=== PATIENT | female | born 1960 | race Caucasian/White ===

== ENCOUNTER 2018-09-24 15:03 | Outpatient (REF) | payer BC, SELFPAY ==
[2018-09-24 18:51] LABS: HCT 38.1 % (36.0-46.0); HGB 12.8 g/dL (12.0-15.5); Mean Corp. HGB Concentration 33.6 g/dL (32.0-36.0); Mean Corpuscular Hemoglobin 33.2 pg (27.0-33.0); Mean Corpuscular Volume 98.7 fL (80-95); Mean Platelet Volume 10.1 fL (8.0-11.0); Platelet Count 325 x1000/uL (130-400); RBC 3.86 m/cumm (4.00-5.20); RBC Distribution Width 14.2 % (11.7-14.6); White Blood Cell Count 8.35 k/cumm (4.4-10.8)
[2018-09-24 18:59] LABS: Anion Gap 9.1 mmol/L (3-11); BUN 19 mg/dL (7-18); CO2 29.9 mmol/L (21.0-32.0); CREATININE 0.92 mg/dL (0.55-1.02); Calcium 9.8 mg/dL (8.5-10.1); Chloride 102 mmol/L (98-107); Glucose 83 mg/dL (70-100); Potassium 4.2 mmol/L (3.5-5.1); Sodium 141 mmol/L (136-145)
== END 2018-09-24 15:23 ==
LOC: NCHCN 15:03
PROVIDERS: PCP Family Medicine; Visit Provider Family Medicine
DX: Z79.1 Long term (current) use of non-steroidal anti-inflammatories (NSAID) (principal)
CPT/HCPCS: 80048; 85027

== ENCOUNTER 2018-11-14 08:40 | Outpatient (CLI) | payer BC, SELFPAY ==
--- NOTE | 2018-11-14 08:58 | DI.RAD_ITS ---
SYMPTOMS/DIAGNOSIS: LLE NUMBNESS AND PAIN, LOW BACK PAIN LUMBAR SPINE: The vertebral bodies are intact. Disc space narrowing is noted at L 5 - S 1. There is discogenic sclerosis. Moderately severe facet joint DJD is identified at this level. There is no evidence of spondylolysis or spondylolisthesis. The pedicle, spinous and transverse processes are well maintained. The sacrum and sacroiliac joints are intact. SUMMARY: Findings consistent with DJD at L 5 - S 1 where there is discogenic sclerosis and facet joint DJD. There is no evidence of spondylolysis or spondylolisthesis.
== END 2018-11-14 09:00 ==
PROVIDERS: PCP Family Medicine; Visit Provider Student in an Organized Health Care Education/Training Program
DX: M54.16 Radiculopathy, lumbar region (principal); R20.2 Paresthesia of skin; M51.17 Intervertebral disc disorders with radiculopathy, lumbosacral region; M47.27 Other spondylosis with radiculopathy, lumbosacral region
CPT/HCPCS: 72110

== ENCOUNTER 2018-11-26 01:11 | Outpatient (CLI) | payer BC, SELFPAY ==
--- NOTE | 2018-11-26 07:39 | DI.MRI_ITS ---
SYMPTOM/DIAGNOSIS: LT LOW BACK PAIN, ? LT INVOLVEMENT,M54.5, LT HIP AND LEG PAIN AND NUMBNESS LUMBOSACRAL SPINE MRI: MRI examination of the lumbosacral spine was performed according to the usual protocol. There are mild peridiscal vertebral signal changes at L 5-S 1 consistent with disc degeneration and there is loss of height of the L 5-S 1 intervertebral disc. Otherwise the intervertebral discs appear fairly well maintained. There is a mild broad based, right paracentral disc herniation at L 5-S 1 without direct evidence of neural impingement. There are very prominent changes of facet hypertrophy at L 4-5 and to a lesser degree at L 5-S 1. Left facet hypertrophy most prominent at L 4-5. There is a rounded mass-like finding seen in the spinal canal adjacent to the hypertrophied facet joint at L 4-5 on the left which measures about 10 by 7 mm. in diameter and which narrows the left lateral recess and displaces spinal canal contents to the right. This is predominantly of high signal on T 2 weighted imaging with low signal rim. Contents are low signal on T 1 weighted imaging. Mild enhancement of the rim noted on post contrast examination. The findings as described are consistent with a synovial cyst. No other disc abnormality is identified in the lumbar region. No additional enhancing lesion seen. Conus medullaris appears intact. Bony central canal and neural foramina appear intact. CONCLUSION: 1. Mild broad based right paracentral disc herniation at L 5-S 1 without evidence of neural impingement. 2. Apparent left synovial cyst in the spinal canal at the L 4-5 level, there may be impingement of left L 4 or L 5 nerve roots at this site.
[2018-11-26] MEDS: Normal Saline Flush 10 ML SYR IVP (08:54)
[2018-11-26] MEDS: Gadoterate meglumine 20 ML VIAL 13 ML IVP (08:54)
== END 2018-11-26 01:31 ==
PROVIDERS: PCP Family Medicine; Visit Provider Student in an Organized Health Care Education/Training Program
DX: M54.5 Low back pain (principal); M25.552 Pain in left hip; M79.605 Pain in left leg; R20.0 Anesthesia of skin; M51.17 Intervertebral disc disorders with radiculopathy, lumbosacral region; M71.38 Other bursal cyst, other site
CPT/HCPCS: 72158

== ENCOUNTER 2019-04-08 07:17 | Day surgery (SDC) | payer BC, SELFPAY ==
--- NOTE | 2019-04-08 06:32 | COLE_ITS ---
Date of service: 04/08/19 Time of Service: 08:12 Colonoscopy Report Date of procedure: 04/08/19 Pre-op diagnosis general: Colon Cancer Screening Post-op diagnosis procedure note: same Procedure: Colonoscopy Surgeon: Angelia Owens Anesthesia proc note operative: other (General/ ASA 2/Lázaro Henley, MARIA TERESA) Estimated blood loss (mL): 0 Pathology: none sent Complications: None Disposition: same day Indications: Mrs. Gibson is a pleasant 58 year old female seen in the office for a screening colonoscopy. Risks, benefits and complications have been reviewed. Complications include but are not limited to bleeding, pain, per foration, missed small lesion/polyp, sore throat, aspiration and adverse reaction to the medications. Questions were entertained and answered to their satisfaction and they wished to proceed. No guarantees were given or implied. Prep: Miralax/Dulcolax Procedure Start Time: 08:12 Procedure End Time: 08:45 Retraction Time: 20 minutes Findings: Mild so-diverticulosis Procedure Description: After informed consent was obtained the patient was taken to the procedure room and placed in a left decubitous position. Monitors were applied and a time out was done. The patients name, date of , procedure, al lergies to medications and metal in their body was reviewed. The patient was then sedated. Once sedated and comfortable a rectal exam was done. External exam was normal. Internal exam revealed a normal sphincter tone and no palpable masses. The scope was then introduced and retro-flexed. No internal hemorrhoids, polyps or masses were identified. The scope was then advanced to the cecum without difficulty. The TI and appendiceal orifice were identified. The prep was good. The scope was then slowly retracted over 20 minutes back into the rectum. There were no polyps. There was mild so-diverticulosis noted. The scope was removed and the patient was woken up and taken back to Same day surgery in stable condition. The patient tolerated the procedure well and there were no immediate complications. Follow up: The patient should follow up in 10 years unless they develop changes in bowel habits or other new gastrointestinal complaints.
--- NOTE | 2019-04-08 06:34 | W.PM.DSUDISC ---
Discharge Plan Disposition Patient Disposition: HOME Condition: Good Discharge Details Reason For Visit: Colon Cancer Screening Attending Provider: Angelia Owens Primary Care Provider: Ruth Grayson Home Meds and New Rx's Prescriptions: Continued fluoxetine [Prozac] 10 MG capsule 10 mg PO DAILY RF: 0 diclofenac-misoprostol 1 EACH tablet,IR,delayed rel,biphasic 1 ea PO DAILY PRNRF: 0 Discontinued polyethylene glycol 3350 17 gram/dose powder 238 g PO ONCE Qty: 238 RF: 0 bisacodyl [Dulcolax (bisacodyl)] 5 mg tablet,delayed release (DR/EC) 5 mg PO ONCE Qty: 4 RF: 0 Discharge Instructions Instructions: Colonoscopy (DC), Diverticulosis (DC) Additional Instructions: Findings:Mild diverticulosis Follow up: 10 years Please call if you develop: fevers >101.5 Nausea or Vomiting Abdominal pain that is not transient DAY SURGERY UNIT POST ENDOSCOPY INSTRUCTIONS 1. Because there will be medication in your system for the next 24 hours, you may feel a little sleepy. Your coordination will be affected. Therefore: a. Do not drive or operate dangerous equipment for 24 hours. b. Do not drink alcohol beverages for 24 hours (not even beer). c. Plan to go home and rest for the day. 2. Generally there are no restrictions on your activity after a day or so has gone by, but you may feel a bit fatigued for a few days. 3 After you arrive home you may have a light meal and return to a normal diet as you can tolerate it without feeling sick to your stomach. 4. After surgery, you may feel pain or discomfort. This should be only transient, but if it persists please contact your doctor. 5. If there are any questions regarding the findings of your procedure, please feel free to contact your doctor. 6. If you are unable to contact your doctor with a problem, contact the hospital at [phone]. 7. Continue all your regular medications unless directed otherwise. I understand the above instructions and have no questions. Signature of Patient or Responsible Adult Escort Date/Time Name of Responsible Adult Escort Signature of Nurse Date/Time Activity:: Activity as Tolerated Diet:: High Fiber diet Discharge Orders Discharge Orders: Discharge Order (Routine); Ordered 04/08/19 Ordered By: Angelia Owens DS: Diagnosis Discharge Diagnosis (1) S/P colonoscopy: Status: Acute (2) Diverticulosis: Status: Acute
[2019-04-08 07:39] VITALS: BP 97/63; PULSE 66; RESP 16; TEMP 36.3; O2SAT 100
[2019-04-08] MEDS: Lactated Ringers 1,000 ML 80 ML IV (08:03)
[2019-04-08 09:08] VITALS: BP 117/59; PULSE 62; RESP 15; TEMP 36.1; O2SAT 100
== END 2019-04-08 09:17 | disposition home or self-care (01) ==
LOC: SUR 07:18
PROVIDERS: PCP Family Medicine; Visit Provider Surgery
PROC: 0DJD8ZZ Inspection of Lower Intestinal Tract, Via Natural or Artificial Opening Endoscopic (ICD-10-PCS; CPT 45378; principal; 2019-04-08 08:15)
DX: Z12.11 Encounter for screening for malignant neoplasm of colon (principal); K57.30 Diverticulosis of large intestine without perforation or abscess without bleeding
CPT/HCPCS: 45378

== ENCOUNTER 2019-09-12 09:30 | Outpatient (CLI) | payer BC, SELFPAY ==
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
--- NOTE | 2019-09-12 08:45 | DI.RAD_ITS ---
EXAM: XR STANDING ALIGNMENT INDICATION: PAIN. COMPARISON: No exams were available for comparison TECHNIQUE: 2D digital imaging was performed. FINDINGS: The hip joint spaces are well maintained. There is no significant leg length discrepancy at the leve l pf the femoral heads. Femoral tibial joint spaces are well maintained. Chondrocalcinosis and andreina articular spurring is noted bilaterally. There is some valgus angulation at the left knee. The ankle joint spaces are well maintained. IMPRESSION: Degenerative changes of both knees. No significant leg length discrepancy. DATA REPOSITORY: RADIATION DOSE DELIVERED:
== END 2019-09-12 09:50 ==
PROVIDERS: PCP Family Medicine; Visit Provider Student in an Organized Health Care Education/Training Program
DX: M25.562 Pain in left knee; M17.0 Bilateral primary osteoarthritis of knee; M23.42 Loose body in knee, left knee
CPT/HCPCS: 73562; 77073

== ENCOUNTER 2019-12-12 02:06 | Outpatient (CLI) | payer BC, SELFPAY ==
--- NOTE | 2019-12-12 16:18 | DI.MAMMO_ITS ---
EXAM: MG MAMMO SCREENING CLINICAL HISTORY: SCREENING, Z12.31 TECHNIQUE: Bilateral full field digital CC and MLO mammographic images were obtained with 3D tomosyn thesis and utilizing computer aided detection (CAD). COMPARISON: Available for comparison. FINDINGS: Masses/Architectural Distortion: None seen. Microcalcifications: No suspicious pleomorphic-type are seen. Skin Thickening/Nipple Retraction: None. IMPRESSION: 1. No significant interval change with no specific features of malignancy noted. 2. Unless there is more urgent need, screening mammography is recommended, as per [place] guidelines. BI-RADS Category 1 - Negative Breast Density - Category B - Scattered areas of fibroglandular density A negative radiographic report should not delay biopsy if a dominant or clinically suspicious mass is present. Up to ten percent of cancers are not identified on mammography. A negative report may reinforce clinical impression. Adenosis and dense breasts may obscure an underlying neoplasm. False positive reports average 6 to 10%. Patient will receive a letter notifying them of these results.
== END 2019-12-12 02:26 ==
PROVIDERS: PCP Family Medicine; Visit Provider Family Medicine
DX: Z12.31 Encounter for screening mammogram for malignant neoplasm of breast (principal)
CPT/HCPCS: 77063; 77067

== ENCOUNTER 2020-05-18 14:20 | Outpatient (REF) | payer BC, SELFPAY ==
[2020-05-22 14:36] LABS: Patient Race White; SARS-CoV-2 RNA Undetected (Undetected); SARS-CoV-2 Specimen Source Nasal
== END 2020-05-18 14:40 ==
LOC: NCHCN 14:20
PROVIDERS: PCP Family Medicine; Visit Provider Nurse Practitioner Family
DX: R05 Cough (principal)
CPT/HCPCS: U0003

== ENCOUNTER 2021-05-02 20:14 | Emergency (ER) | payer BC, SELFPAY ==
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
--- NOTE | 2021-05-02 20:30 | DI.CT_ITS ---
Exam(s) CT CHEST/ABD/PEL W EXAM: CT CHEST/ABD/PEL W TECHNIQUE: CT examination of the chest, abdomen, and pelvis was performed with bolus infusion of 100 cc of Omnipaque 350. COMPARISON: No exams were available for comparison FINDINGS: There is no evidence of a thoracic vascular injury. The lungs are clear. No pneumothorax or pleural effusion. No mediastinal hematoma. No adenopathy in the chest. Tracheobronchial tree appears intact. The liver, spleen, and pancreas appear normal with an incidental presumed tiny hepatic cyst or angelika ioma.. Gallbladder and bile ducts are normal. Adrenals and kidneys are unremarkable. No evidence of urinary tract injury or obstruction. No abdominal or pelvic vascular injury seen. No abdominal or pelvic adenopathy. No significant abdomi nal wall hernia or hematoma. No evidence of bowel injury. Note is made of Chun rods in the spine at L4 and L5. Note is made nondisplaced fractures of left 7th and 9th ribs. No additional bony injury seen. IMPRESSION: Nondisplaced 7th and 9th left rib fractures. No additional injury seen. RADIATION DOSE DELIVERED: 1,022.94mGy.cm Total DLP 1,022.94mGy.cm Total DLP 15.54mGy CTDIvol DATA REPOSITORY: All CT scans at this facility are submitted to the National Radiology Data Registry (NRDR) Dose Index Registry (DIR) with the [employer] ([employer]). RADIATION OPTIMIZATION: All CT scans at this facility use at least one of these dose optimization te chniques: automated exposure control; mA and/or kV adjustment per patient size (includes targeted exa ms where dose is matched to clinical indication); or iterative reconstruction.
[2021-05-02 20:34] VITALS: BP 118/66; PULSE 68; RESP 18; TEMP 36.6; O2SAT 100
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
[2021-05-02 21:04] LABS: Bilirubin Negative (Negative); Blood Trace-intact (Negative); Clarity Clear (Clear); Glucose Negative (Negative); Ketones Negative (Negative); Leukocyte Esterase Negative (Negative); Nitrite Negative (Negative); Urobilinogen 0.2 EU/dL (Up TO 0.2)
[2021-05-02 21:06] LABS: Abs Immature Grans 0.01 10^3/uL (0.0-0.06); Absolute Basophil Count 0.05 10^3/uL (0.0-0.2); Absolute Eosinophil Count 0.39 10^3/uL (0.0-0.7); Absolute Lymphocyte Count 2.63 10^3/uL (1.2-3.4); Absolute Neutrophil Count 5.01 10^3/uL (1.2-6.7); Basophils % 0.6; Eosinophils % 4.4; HCT 36.9 % (36.0-46.0); HGB 12.2 g/dL (11.2-15.7); Immature Grans % 0.1; Lymphocytes % 29.9; MCH 32.4 pg (27.0-33.0); MCHC 33.1 % (32.0-36.0); MCV 98.1 fL (80-95); MPV 9.6 fL (8.0-11.0); Nucleated RBC 0 %; Platelet Count 306 10^3/uL (130-400); RBC 3.76 10^6/uL (3.93-5.22); RDW 13.2 % (11.7-14.6); RDW-SD 48.3 fL; WBC 8.79 10^3/uL (4.4-10.8)
[2021-05-02 21:12] LABS: Bacteria Negative HPF (Negative); C & S Indicated? No; Casts Negative LPF (Negative); Crystals Negative HPF (Negative); Epithelial Cells Rare HPF (Negative); Mucus Negative (Negative); WBC Negative HPF (0-5)
[2021-05-02] MEDS: ACETAMINOPHEN 1,000 MG/100 ML BTL 400 MG IVPB (21:22)
[2021-05-02 21:24] LABS: ALT 23 U/L (14-59); AST 29 U/L (15-37); Albumin 3.7 g/dL (3.4-5.0); Alkaline Phosphatase 62 U/L (46-116); Anion Gap 6.8 mmol/L (3-11); BUN 14 mg/dL (7-18); Bilirubin, Total 0.2 mg/dL (0.2-1.0); CO2 30.2 mmol/L (21.0-32.0); CREATININE 1.1 mg/dL (0.55-1.02); Chloride 105 mmol/L (98-107); Estimated GFR 50.33 (mL/min/1.73m2); Glucose 88 mg/dL (74-106); Potassium 3.8 mmol/L (3.5-5.1); Sodium 142 mmol/L (136-145)
[2021-05-02] MEDS: Omnipaque 350 MG/ML 100 ML BTL IJ (21:24)
[2021-05-02] MEDS: Normal Saline - Diluent 50 ML VIAL IV (21:25)
[2021-05-02] MEDS: Normal Saline Flush 10 ML SYR IVP (21:25)
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
[2021-05-02] MEDS: Lidocaine 5% Patch 1 PATCH TP (21:57)
[2021-05-02 22:10] VITALS: BP 125/59; PULSE 77; RESP 18; O2SAT 98
== END 2021-05-02 22:16 | disposition home or self-care (01) ==
PROVIDERS: Emergency Provider Student in an Organized Health Care Education/Training Program; PCP Family Medicine
DX: S22.42XA Multiple fractures of ribs, left side, initial encounter for closed fracture (principal); S80.02XA Contusion of left knee, initial encounter; V18.0XXA Pedal cycle driver injured in noncollision transport accident in nontraffic accident, initial encounter; Y93.55 Activity, bike riding; Z96.652 Presence of left artificial knee joint
CPT/HCPCS: 36415; 73562; 74177; 80053; 96374; 99285; 71260; 81003; 81015; 85025; J0131; J3490

== ENCOUNTER 2021-06-18 10:16 | Outpatient (CLI) | payer BC, SELFPAY ==
--- OUTSIDE RECORDS SUMMARY | 2021-06-18 10:21 | XMS_ITS ---
:1960 Author Care Team Providers Name Role Phone DR. ROSA STEIN Primary Care Provider [phone] DR. ROSA STEIN Referring Provider [phone] ROSA STEIN Primary Care Provider [phone] Allergies Code Code System Name Reaction Severity Status Onset NKDA ? Medications Name Status Start Date Stop Date ? ? diclofenac 75 mg-misoprostol 200 mcg tablet,immediate,delaye d release Completed ? 02/24/2020 Take 1 tablet twice a day by oral route. fluoxetine 10 mg tablet Active ? Not avai lable Take 1 tablet every day by oral route. prednisone 10 mg tablet Active ? Not avai lable 40mg PO daily for 3 days then 30mg PO d aily for 3 days then 20mg PO daily for 3 days then 10 mg PO daily for 3 days Problems Name Status Onset Date Source ? Carpal Tunnel Syndrome Active 02/20/2020 ? Dyspareunia Active 02/20/2020 ? Skin Lesion Active 02/20/2020 ? Osteoarthritis Active 02/20/2020 ? Sciatica Active 02/20/2020 ? Plantar Fasciitis Active 02/20/2020 ? Long-term Drug Therapy Active 02/20/2020 ? Pain in Left Knee Active 02/20/2020 ? Procedures Date Name Performed by ? 04/21/2020 XR, [facility] [address] [place] [address] (Work Place) 05/26/2020 XR, Knee, 3 View [facility] [address], [place] [id number] (Work Place) Results Lab Results None recorded. Past Encounters 06/23/2020 Plantar Fasciitis Giuseppe Bone PA: [address] [place] [phone], Ph. 05/26/2020 Plantar Fasciitis; Osteoarthritis of Lef t Knee Joint Giuseppe Bone PA: [address] [place] [address], Ph. 04/21/2020 Pain of Left Heel ALEXANDRIA Hansen: [address] [place] [address], Ph. 02/24/2020 Plantar Fasciitis of Right Foot Venkata Yap: [address] [facility], [place] [address], Ph. Social History Tobacco Smoking Status Never Smoker Vaccine List None recorded. Plan of Care Patient Instructions We talked about treatment options keenan fontana at this point are really anti- inflammatories and casting. She recently had back surgery in December so still needs to stay off NSAIDs for another month or so. We can try some prednisone and see how she does with this. She is willing to try it. We also talked about casting. She is not sure if she will be able to be at work with a cast on. I told her we could cer tainly try the prednisone for a week or so and see how she does. If we do go with the casting we could arrange it so we do it through her Flo break which might give her only a week or 2 that she w ould need to be in the cast while at [facility]. She is going to try the prednisone taper as prescribed. I will hear back from her in a week to let me know how she is doing. If she has any issues with the medication she will stop it and let me know. This note was created using Evalve voice recognition software. It was reviewed for major content. However, there may be multiple small discrepancies and errors due to the voice recognition aspects of the software. In terms of her foot I would contin ue the present course as she is making some strides albeit slow. 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 In terms of the knee I think she is really a candidate for a total knee replacement. She has had multiple steroid injections in the past. She also had a Synvisc injection and developed what sounds like a pseudos eptic reaction from it. She is not interested in undergoing any further injections. She is going to give some consideration to total knee replacement. We did talk about the procedure, and the risks and the benefits very briefly. If she wishes to undergo this procedure here at [facility] she will let us know and I will get her into see Dr. Moss. She is due to quiroga ve a meeting with her principal so she i s going to check with her to see if she is able to get some time off to be able to do this sooner than later. We will see how she does. She will get back to me if there is any questions or concerns. This note was created using Evalve voice recognition software. It was reviewed for major content. However, there may be multiple small discrepancies and errors due to the voice recognition aspects of the software. At this point I fit her with a plan tar fascia strap. She thought it felt good. She had been doing some kinesiotaping but she can hold off on that now while she is using the strap. She is going to [employer] to work on icing with an ice bot tle as well as stretching. She will continue use of the night splint. I will see her back in 4 weeks for review to see how she is doing. She has any issues she will let me know. This note was created using Evalve voice recognition software. It was reviewed for major content. However, there may be multiple small discrepancies and errors due to the voice recognition aspects of the software. Reminders Provider Appointments None recorded. ? ? Lab None recorded. ? ? Referral None recorded. ? ? Procedures None recorded. ? ? Surgeries None recorded. ? ? Imaging None recorded. ? ? Vitals 06/23/2020 10:10AM ACUTE - ESTABLISHED Height 175.26 cm 05/26/2020 04:10PM ORTHO 20 FOLLOW UP Height 175.26 cm 04/21/2020 03:30PM ORTHO 20 NEW PATIENT Height 175.26 cm 02/24/2020 03:45PM NEW PATIENT Height Weight BMI Blood Pressure 175.26 cm 66.68 kg 21.7 kg/m2 110/50 mm[Hg]
--- NOTE | 2021-06-18 10:26 | DI.RAD_ITS ---
Exam(s) XR KNEE RT 3V AP,LAT,DEMETRIUS EXAM: XR KNEE RT 3V AP,LAT,DEMETRIUS CLINICAL HISTORY: RT KNEE PAIN ACUTE, M25.561. TECHNIQUE: 2D digital imaging was performed. COMPARISON: No exams were available for comparison FINDINGS: BONES: No acute fracture is present. No bony destructive lesion is seen. Periarticular spurring. JOINTS: The knee is normally aligned. A small joint effusion is seen. Chondrocalcinosis is noted in t he menisci. Narrowing of the patellofemoral joint. SOFT TISSUE: Normal. IMPRESSION: Degenerative changes and chondrocalcinosis. DATA REPOSITORY: RADIATION DOSE DELIVERED:
== END 2021-06-18 10:36 ==
PROVIDERS: PCP Family Medicine; Visit Provider Nurse Practitioner Family
DX: M25.561 Pain in right knee (principal); M17.11 Unilateral primary osteoarthritis, right knee; M11.261 Other chondrocalcinosis, right knee
CPT/HCPCS: 73562

== ENCOUNTER 2021-06-23 10:41 | Outpatient (REF) | payer BC, SELFPAY ==
[2021-06-23 21:35] LABS: ESR 1 mm/hr (0-30)
[2021-06-23 21:56] LABS: Creatine Kinase 81 U/L (26-192); Uric Acid 3.1 mg/dL (2.6-6.0)
[2021-06-25 10:31] LABS: HIV-1/2 Ag & Ab Screen Negative (Negative)
[2021-06-25 14:19] LABS: ANA Interpretation Positive (Negative); ANA Titer Pattern 1:160 Speckled
== END 2021-06-23 10:42 | disposition home or self-care (01) ==
LOC: LBN 10:41
PROVIDERS: PCP Family Medicine; Visit Provider Family Medicine
DX: R22.41 Localized swelling, mass and lump, right lower limb (principal); M25.561 Pain in right knee; Z00.00 Encounter for general adult medical examination without abnormal findings; Z11.4 Encounter for screening for human immunodeficiency virus [HIV]
CPT/HCPCS: 82550; 85652; 87389; 84550; 86038

== ENCOUNTER 2021-06-25 01:25 | Outpatient (CLI) | payer BC, SELFPAY ==
--- NOTE | 2021-06-25 10:45 | DI.US_ITS ---
Exam(s) US LOWER EXTREMITY VENOUS RT EXAM: US LOWER EXTREMITY VENOUS RT CLINICAL HISTORY: RT KNEE PAIN M25.561 RT LEG SWELLING R22.41 TECHNIQUE: Right lower extremity venous ultrasound performed using grayscale, color-flow, and spectr al Doppler analysis. COMPARISON: No exams were available for comparison FINDINGS: The right common femoral, femoral and popliteal veins demonstrate normal compressibility, augmentatio n, and color Doppler. The posterior tibial veins are patent. The saphenofemoral junction is unremark able. There is no evidence of a Waters cyst. The soft tissues are unremarkable. IMPRESSION: No DVT. DATA REPOSITORY:
[2021-06-29 10:27] LABS: dsDNA Ab, IgG <12.3 IU/mL (<30.0)
== END 2021-06-25 01:45 ==
PROVIDERS: PCP Family Medicine; Visit Provider Family Medicine
DX: R22.41 Localized swelling, mass and lump, right lower limb (principal); M25.561 Pain in right knee; R79.89 Other specified abnormal findings of blood chemistry
CPT/HCPCS: 86225; 93971

== ENCOUNTER 2021-07-07 00:11 | Outpatient (CLI) | payer BC, SELFPAY ==
--- NOTE | 2021-07-07 14:30 | DI.MRI_ITS ---
Exam(s) MR LOWER JOINT RT WO EXAM: MR LOWER JOINT RT WO CLINICAL HISTORY: RT KNEE PAIN M25.561, RT KNEE EFFUSION SWELLING DIFFUSE BRUISING AROUND TECHNIQUE: Multiplanar multisequence MRI of the knee was performed. COMPARISON: Prior x-rays 06/18/2021 reviewed Those x-rays reveal chondrocalcinosis medial lateral compartments. This is a finding which is more evident on plain films and MRI. Usually associated with degenerative changes. FINDINGS: EFFUSION: Prominent joint effusion noted. There is no waters cyst in the popliteal fossa MARROW:No evidence of fracture. There is subarticular edema in the anterior aspect of both femoral c ondyles, as discussed below. There are no significant osseous lesions. PATELLOFEMORAL COMPARTMENT: The quadriceps tendon is intact. The patellar ligament is intact. There is full-thickness thinning of the retropatellar cartilage over both facets and degenerative int raosseous signal in the posterior aspect of the patella including a degenerative cysts in the posteri or lateral aspect of the patella, these measuring approximately 8 by 7 millimeters.There is no intrao sseous signal to suggest recent patellar dislocation. There is a tear in the lateral patellar retina culum. Synovial fluid is seen external to this tear. No high-grade tear of the medial patellar reti naculum. Also no evidence of tear of the medial collateral ligament proper. CRUCIATE LIGAMENTS: The anterior cruciate ligament is intact.The posterior cruciate ligament is intac t. MEDIAL COMPARTMENT/MEDIAL MENISCUS: There is myxoid degeneration signal but there are no through tear s of the medial meniscus evident.The meniscal root is intact.. There is generalized thinning and signal abnormality in the cartilage over the medial femoral condyle . Anteriorly there are multiple tiny subarticular cysts in the anterior weight-bearing surface of th e medial femoral condylealso prominent marginal osteophyte off the outer aspect. MEDIAL COLLATERAL LIGAMENT: Intact LATERAL COMPARTMENT/LATERAL MENISCUS: There is also myxoid degeneration but no evidence of true later al meniscal tear.Prominent signal abnormality seen in the overlying femoral condyle. There is also w hat is either degenerative subarticular cyst or an osteochondral defectin the anterior weight-bearing surface of the lateral femoral condyle. This measures 1 cm AP by 0.7 cm wide by 6 millimeters deep and there is some surrounding edema in the overlying bone. Marginal osteophytes also seen in the lat eral compartment. ILIOTIBIAL BAND: Intact but adjacent lateral patellar retinaculum tear. LATERAL COLLATERAL LIGAMENT COMPLEX: The fibular collateral ligament is intact. The biceps femoris t endon is intact.Popliteus muscle and tendon are intact. IMPRESSION: 1. The main finding here is advanced osteoarthritic degenerative change in all 3 compartments, includ ing cartilage changes, degenerative subarticular cysts and what is either an osteochondral defect or degenerative subarticular cysts in the anterior weight-bearing surface of the lateral femoral condyle . There is also significant cartilage loss in the retropatellar cartilage and degenerative cysts and degenerative signal in the posterior half of the patella. 2. There is a discontinuity-tear in the lateral patellar retinaculum with a gap of 1 cm between the e dges and contain fluid extravasation at this level. Similar findings are not seen in the medial vasquez llar retinaculum. 3. There are no obvious meniscal tears. There is some degenerative myxoid degeneration signal within both menisci but no true tears. There also no cruciate ligament tears. Also no collateral ligament tears. 4. Moderate-large joint effusion. No Waters cyst. No obvious loose intra-articular body. DATA REPOSITORY:
== END 2021-07-07 00:31 ==
PROVIDERS: PCP Family Medicine; Visit Provider Family Medicine
DX: M25.561 Pain in right knee (principal); M25.461 Effusion, right knee; M17.11 Unilateral primary osteoarthritis, right knee; S83.422A Sprain of lateral collateral ligament of left knee, initial encounter; X58.XXXA Exposure to other specified factors, initial encounter
CPT/HCPCS: 73721

== ENCOUNTER 2021-12-09 18:42 | Outpatient (REF) | payer BC, SELFPAY ==
[2021-12-09 12:46] LABS: HCT 38.6 % (36.0-46.0); HGB 12.7 g/dL (11.2-15.7); MCH 32.6 pg (27.0-33.0); MCHC 32.9 % (32.0-36.0); MCV 99 fL (80-95); MPV 9.5 fL (8.0-11.0); Platelet Count 379 10^3/uL (130-400); RBC 3.89 10^6/uL (3.93-5.22); RDW 13.2 % (11.7-14.6); WBC 7.78 10^3/uL (4.4-10.8)
[2021-12-09 12:48] LABS: PTT Activated 26.1 sec (21.0-27.5); Prothrombin Time 9.9 sec (9.3-11.0)
[2021-12-14 17:31] LABS: RNP Ab, IgG 1.5 Units (<20.0); SS-A Antibody 2.5 Units (<20.0); SS-B (La) Ab, IgG 2.2 Units (<20.0); Sm (Smith) Ab, IgG 2.4 Units (<20.0)
== END 2021-12-09 18:43 | disposition home or self-care (01) ==
LOC: NCHCN 18:42
PROVIDERS: PCP Family Medicine; Visit Provider Family Medicine
DX: R79.89 Other specified abnormal findings of blood chemistry (principal); Z13.0 Encounter for screening for diseases of the blood and blood-forming organs and certain disorders involving the immune mechanism
CPT/HCPCS: 85027; 85610; 85730; 86235

== ENCOUNTER → 2022-01-12 01:27 | Outpatient (CLI) | payer BC, SELFPAY ==
--- NOTE | 2022-01-12 | DI.MRI_ITS ---
Exam(s) MR LOWER JOINT RT WO EXAM: MR LOWER JOINT RT WO CLINICAL HISTORY: RT KNEE PAIN, SWELLING,BRUISE,? LATERAL RETINACULAR TEAR. TECHNIQUE: Multiplanar multisequence MRI was performed. COMPARISON: MR MR LOWER JOINT RT WO from 07/07/2021 FINDINGS: BONES: There is no fracture or contusion pattern. There has been interval increase in the marrow priscilla a in the anterior aspect of the medial femoral condyle. Subchondral edema is also seen at the articu lar surface of the patella. JOINTS: There is loss of cartilage seen in both the medial lateral patellar facet inferiorly. There is mild thinning of the articular cartilage in the medial femoral tibial joint. Periarticular spurri ng is seen involving all 3 joint compartments. There is a small amount of fluid in the joint space. TENDONS: Extensor mechanism: Unremarkable. Medial retinaculum: Unremarkable. Lateral retinaculum: There is again seen a 1 cm gap in the lateral retinaculum. This is unchanged co mpared to the prior examination. Popliteus: Unremarkable. MUSCLES: Unremarkable. MENISCI: There is no evidence of a meniscal tear. SOFT TISSUES: Unremarkable. LIGAMENTS: Anterior Cruciate: Unremarkable. Posterior Cruciate: Unremarkable. Medial Collateral:Unremarkable. Lateral Collateral: Unremarkable. OTHER: IMPRESSION: 1. Moderate tricompartment osteoarthritis. 2. Stable 1 cm gap in the lateral retinaculum. It is unchanged. 3. No evidence of an acute meniscal or ligament tear. DATA REPOSITORY:
== END ==
PROVIDERS: PCP Family Medicine; Visit Provider Student in an Organized Health Care Education/Training Program
DX: M17.11 Unilateral primary osteoarthritis, right knee (principal); R60.0 Localized edema
CPT/HCPCS: 73721

== ENCOUNTER 2022-08-01 02:42 | Outpatient (CLI) | payer BC, SELFPAY ==
--- NOTE | 2022-08-01 | DI.MAMMO_ITS ---
Exam(s) MAMMO SCREENING EXAM: MAMMO SCREENING CLINICAL HISTORY: SCREENING FOR BREAST CANCER Z12.31 TECHNIQUE: Mammograms were interpreted according to the usual protocol including computer analysis w [employer] CAD system, tomosynthesis and C-view imaging. COMPARISON: 2013 through 2019 FINDINGS: The breasts are composed of scattered fibroglandular densities, Breast Density category B. No suspicious masses or suspicious microcalcifications are seen. No skin thickening or abnormal axillary lymph nodes are seen. There has been no significant change from prior exams. IMPRESSION: BI-RADS Category 1, Negative mammogram Yearly screening mammography is recommended. Breast Density - Category B, scattered fibroglandular densities. A negative radiographic report should not delay biopsy if a dominant or clinically suspicious mass is present. Up to ten percent of cancers are not identified on mammography. A negative report may reinforce clinical impression. Adenosis and dense breasts may obscure an underlying neoplasm. False positive reports average 6 to 10%. Patient will receive a letter notifying them of these results.
== END 2022-08-01 03:02 ==
LOC: DI 02:42
PROVIDERS: PCP Family Medicine; Visit Provider Family Medicine
DX: Z12.31 Encounter for screening mammogram for malignant neoplasm of breast (principal)
CPT/HCPCS: 77063; 77067

== ENCOUNTER 2022-10-03 11:51 | Outpatient (REF) | payer BC, SELFPAY ==
--- NOTE | 2022-10-03 11:15 | PAPFT_PTH ---
PATIENT: Taylor Gibson LOC: [facility][id number] AGE/SX: 61/F ROOM: RE10/03/[address]: Ruth Grayson : 1960 BED: DIS: 10/03/2022 SPEC #: [id number] RECD: 10/03/22 17:20 STATUS: ALVARO RECorey #: [id number] ROMÁN: 10/03/22 11:[address]: Ruth Grayson DEPT: [facility] Cytology RECD BY: Linda Smyth Tissues: 1 - CX/ENDOCX FOR PAP SMEARS Procedures: PAP THIN PREP/UVM Screening HPV DNA PROBE Comments: [id number]
== END 2022-10-03 11:52 | disposition home or self-care (01) ==
LOC: NCHCN 11:51
PROVIDERS: PCP Family Medicine; Visit Provider Family Medicine
DX: Z12.4 Encounter for screening for malignant neoplasm of cervix (principal); Z11.51 Encounter for screening for human papillomavirus (HPV); Z01.419 Encounter for gynecological examination (general) (routine) without abnormal findings
CPT/HCPCS: 88142; 87624

== ENCOUNTER 2023-10-02 13:22 | Outpatient (CLI) | payer MEDICARE, SELFPAY ==
--- NOTE | 2023-10-02 10:36 | DI.RAD_ITS ---
Exam(s) XR STANDING ALIGNMENT XR KNEE RT 1V EXAM: XR STANDING ALIGNMENT and XR knee RT 1 V CLINICAL HISTORY: TKR planning. TECHNIQUE: 2D digital imaging was performed. Six images were obtained. COMPARISON: CR XR STANDING ALIGNMENT from 09/12/2019 CR,XR XR KNEE LT 3V AP,LAT,DEMETRIUS from 05/02/2021 CR XR KNEE RT 3V AP,LAT,DEMETRIUS from 06/18/2021 FINDINGS: BONES: Posterior surgical changes are seen in the lower lumbar spine. The hips are well maintained. Moderate degenerative changes are seen in the right knee characterized by joint space narrowing and osteophytes. There is chondrocalcinosis in the femoral tibial joint. There is a tiny joint effusion present. There are stable postsurgical changes of a left total knee replacement. No suspicious jessica encies are seen around the orthopedic hardware. The ankles are well maintained.There is no significa nt leg length discrepancy. SOFT TISSUE: Normal. IMPRESSION: 1. Moderate degenerative changes in the right knee. 2. Left total knee replacement. DATA REPOSITORY: RADIATION DOSE DELIVERED:
== END 2023-10-02 13:23 | disposition home or self-care (01) ==
LOC: DIORS 13:22
PROVIDERS: PCP Family Medicine; Referring Provider Family Medicine; Visit Provider Student in an Organized Health Care Education/Training Program
DX: M17.11 Unilateral primary osteoarthritis, right knee (principal)
CPT/HCPCS: 99213; 73560; 77073

== ENCOUNTER 2023-10-05 03:05 | Outpatient (CLI) | payer MEDICARE, SELFPAY ==
[2023-10-05 11:58] LABS: HCT 38.1 % (36.0-46.0); MCH 33.2 pg (27.0-33.0); MCHC 34.1 % (32.0-36.0); MCV 97 fL (80-95); MPV 9.2 fL (8.0-11.0); Platelet Count 306 10^3/uL (130-400); RBC 3.92 10^6/uL (3.93-5.22); RDW 13.5 % (11.7-14.6); RDW-SD 48.3 fL; WBC 9.84 10^3/uL (4.4-10.8)
[2023-10-05 12:35] LABS: Anion Gap 9.4 mmol/L (3-11); BUN 20 mg/dL (7-18); CO2 27.6 mmol/L (21.0-32.0); Calcium 9.2 mg/dL (8.5-10.1); Chloride 105 mmol/L (98-107); Estimated GFR 62.91 (mL/min/1.73m2); Glucose 88 mg/dL (74-106); Potassium 3.9 mmol/L (3.5-5.1); Sodium 142 mmol/L (136-145)
== END 2023-10-05 03:06 | disposition home or self-care (01) ==
LOC: LBO 03:05
PROVIDERS: PCP Family Medicine; Visit Provider Student in an Organized Health Care Education/Training Program
DX: M17.11 Unilateral primary osteoarthritis, right knee (principal); Z01.818 Encounter for other preprocedural examination
CPT/HCPCS: 36415; 80048; 85027

== ENCOUNTER 2023-10-17 08:25 | Day surgery (SDC) | payer MEDICARE, SELFPAY ==
[2023-10-17] VITALS (21 sets, daily range): BP systolic 88–110; BP diastolic 48–71; PULSE 59–76; RESP 13–22; TEMP 35.7–36.6; O2SAT 95–100; BMI 21.9
--- NOTE | 2023-10-17 07:27 | PDOC.DSDIS_ITS ---
Date of service: 10/17/23 Time of Service: 07:27 Discharge Plan Disposition Patient Disposition: Home Condition: Good Discharge Details Reason For Visit: R TKR Attending Provider: Clayton Callaway Primary Care Provider: Ruth Grayson Home Meds and New Rx's Prescriptions: New acetaminophen 500 mg tablet 1,000 mg PO TID Qty: 90 3RF celecoxib 200 mg capsule 200 mg PO BID Qty: 60 0RF aspirin 81 mg tablet,delayed release (DR/EC) 81 mg PO BID Qty: 60 0RF pantoprazole 40 mg tablet,delayed release (DR/EC) 40 mg PO DAILY Qty: 30 0RF dexamethasone 4 mg tablet 4 mg PO DAILY Qty: 2 0RF gabapentin 300 mg capsule 300 mg PO QHS Qty: 14 0RF oxycodone 5 mg tablet 5 mg PO Q4H MDD 6 tabs PRN (Reason: pain) Qty: 20 0RF Discontinued diclofenac-misoprostol 75-200 mg-mcg tablet,IR,delayed rel,biphasic 1 tab PO BID PRN Discharge Instructions Additional Instructions: Total Knee Discharge Instructions Activity: The most important activity is to walk and to work on gentle motion (both flexion and extension). You should try to take short walks a few times a day. It is important that when resting you work on keeping the knee straight. Avoid putting a pillow behind the knee as this will encourage flexion. Work on range of motion exercises as provided by Physical Therapy. - Start outpatient physical therapy within 2 weeks. - You should wear the LOLI hose on both legs for 2 weeks. You may remove these at night. You may also use any compression sock in place of the LOLI hose. - Utilize [employer] to review exercises, see videos on exercises and obtain basic information pertaining to your surgery and your recovery. Dressing: Remove the Dey wrap by 2 days after your surgery and put on the LOLI stocking given to you from the hospital. Keep the surgical dressing (underneath the EDY wrap) in place for at least one week. After the first week it may be removed and replaced with light gauze and tape or nothing. The wound and dressing may get wet after 3 days but avoid soaking the dressing or otherwise it will need to be changed. Many people prefer covering the dressing with cling wrap (saran wrap) to minimize it from getting soaked. If it gets wet, just pat dry. If it starts to peel off then it will need to be changed. Medications: - You should take Tylenol and anti-inflammatory Celebrex as your primary pain control medications. If the Celebrex is too expensive or not covered, please call the office for another alternative (Advil/Ibuprofen or Naproxen/Aleve) - You have been prescribed a stronger pain medication Oxycodone for breakthrough pain, take as needed as prescribed. - You have also been prescribed a stomach acid reduction agent Pantoprozole to help reduce stomach acid and reflux. - You have been prescribed Gabapentin to take at night for restlessness and nerve pain. - You will be taking Aspirin 81mg twice a day for DVT prevention unless instructed otherwise. - You have also been prescribed Decadron to take to control post-operative nausea and pain. You will start this tomorrow. - If you have constipation you should take Colace or Miralax (both ryyy-qau-cneyatb). It takes most people 3-4 days to have a bowel movement. Follow-up: 2 weeks If you have any acute concerns or questions, please do not hesitate to contact the office at [phone]. You may contact Dr. Callaway with any questions after hours through the hospital at [phone] or on his cell phone at [phone]. Stand Alone Forms: Anesthesia Discharge InstAnes. CourtneyNerve Block Instructions, Yony King (DSU) Referrals: Meenakshi Goode DPT [DOCTOR OF PHYSICAL THERAPY] - 10/31/23 9:15 am Clayton Callaway MD [ [facility] STAFF PHYSICIAN] - 11/02/23 1:30 pm Equipment/Supplies: Walker Activity:: Activity as Tolerated Shower/Bathe:: 72 hours Diet:: As Tolerated Discharge Orders Discharge Orders: Discharge Order (Routine); Ordered 10/17/23 Ordered By: Joe Segundo Discharge Data Discharge Date/Time-TO BE ENTERED AT DEPARTURE: 10/17/23 16:00 DS: Diagnosis Discharge Diagnosis (1) Osteoarthritis of right knee: Status: Acute Exam Extrem Other: Taylor was having some weakness and numbness of the right foot. On evaluation she had some weak toe extension as well as dorsiflexion. She did not have complete numbness. This was slightly worse than when I first evaluated her. This likely represents some of the periarticular cocktail interacting with the common peroneal nerve. It should resolve on its own over the next 12 or so hours.
[2023-10-17] MEDS: Celecoxib 200 MG CAP PO (08:46)
[2023-10-17] MEDS: Gabapentin 300 MG CAP 600 MG PO (08:46)
[2023-10-17] MEDS: Acetaminophen 500 MG TAB 1000 MG PO (08:46)
[2023-10-17] MEDS: Lactated Ringers 1,000 ML 80 ML IV (09:00)
[2023-10-17] MEDS: ceFAZolin 2 GM/50 ML BAG IVPB (10:24)
--- NOTE | 2023-10-17 10:53 | SYNOVIUM_PTH ---
PATIENT: Taylor Gibson LOC: [facility] U#:[id number] AGE/SX: 63/F ROOM: RE10/17/[address]: Clayton Callaway MD : 1960 BED: DIS: 10/17/2023 SPEC #: [id number] RECD: 10/17/23 12:45 STATUS: ALVARO REQ #: [id number] ROMÁN: 10/17/23 10:[address]: Clayton Callaway DEPT: Surgical Specimen RECD BY: Linda Smyth ENTERED: 10/17/23 12:46 SP TYPE: SYNOVIUM OTHR DR: Ruth Grayson Tissues: 1 - SYNOVIUM/IAL Procedures: GROSS AND MICRO LEVEL 4 Comments: [id number]
--- NOTE | 2023-10-17 11:07 | W.ANESPRE ---
General Info Date of Service Date Performed: 10/17/23 Height: 5 ft 8 in Weight: 65.6 kg Body Mass Index (BMI): 21.9 Surgical Procedure: Operation Date: 10/17/23 11:10 Proposed Procedure Side Surgeon p Knee Total Arthroplasty w/OrthAlign, Cementless CR Right Clayton Callaway MD Actual Procedure Side Surgeon p Knee Total Arthroplasty w/OrthAlign, Cementless CR Right Clayton Callaway MD Pre-Op Diagnosis Post-Op Diagnosis right knee osteoarthritis right knee osteoarthritis Meds Allergies and Home Medications Allergies Allergy/AdvReac Type Severity Reaction Status Date / Time No Known Drug Allergies Allergy Other (See Unverified 10/17/23 08:42 Comment) Home Medication Medication Instructions Recorded acetaminophen 500 mg tablet 1,000 mg (2 x 500 mg) PO TID #90 10/17/23 tabs aspirin 81 mg tablet,delayed 81 mg PO BID #60 tabs 10/17/23 release celecoxib 200 mg capsule 200 mg PO BID #60 caps 10/17/23 dexamethasone 4 mg tablet 4 mg PO DAILY #2 tabs 10/17/23 gabapentin 300 mg capsule 300 mg PO QHS #14 caps 10/17/23 oxycodone 5 mg tablet 5 mg PO Q4H PRN pain #20 tabs 10/17/23 pantoprazole 40 mg tablet,delayed 40 mg PO DAILY #30 tabs 10/17/23 release Current Visit Medications: Current Medications Generic Name Dose Route Start Last Admin Trade Name Freq PRN Reason Stop Dose Admin Acetaminophen 1,000 mg 10/17/23 06:00 10/17/23 08:46 Acetaminophen 500 Mg Tab PO 10/17/23 23:59 1,000 mg PREOP BELINDA Administration Acetaminophen 1,000 mg 10/17/23 07:20 Acetaminophen 500 Mg Tab PO 11/16/23 07:19 TID PRN PRN Analgesia Celecoxib 200 mg 10/17/23 06:00 10/17/23 08:46 Celecoxib 200 Mg Cap PO 10/17/23 23:59 200 mg PREOP BELINDA Administration Docusate Sodium 100 mg 10/17/23 07:20 Docusate Sodium 100 Mg Cap PO 11/16/23 07:19 BID PRN PRN Constipation Gabapentin 600 mg 10/17/23 06:00 10/17/23 08:46 Gabapentin 300 Mg Cap PO 10/17/23 23:59 600 mg PREOP BELINDA Administration Ringer's Solution 1,000 mls @ 80 mls/hr 10/17/23 06:00 IV 10/17/23 23:59 INFUSION BELINDA Cefazolin Sodium/Dextrose 2 gm in 50 mls @ 100 mls/hr 10/17/23 06:00 10/17/23 10:24 Ancef Duplex IVPB 10/17/23 23:59 100 mls/hr PREOP BELINDA Administration Tranexamic Acid/Sodium Chloride 100 mls @ 600 mls/hr 10/17/23 06:00 10/17/23 10:48 IVPB 10/17/23 23:59 600 mls/hr PREOP BELINDA Administration IV Miscellaneous Supplies 1 each 10/17/23 06:00 Iv Access IV 10/17/23 23:59 DIRECTED BELINDA Ondansetron HCl 4 mg 10/17/23 07:20 Ondansetron 4 Mg/2 Ml Vial IVP 11/16/23 07:19 Q6H PRN PRN Nausea Oxycodone HCl 0 mg 10/17/23 07:20 Oxycodone 5 Mg Tab PO 11/16/23 07:19 Q3H PRN PRN Pain Polyethylene Glycol 17 gm 10/17/23 07:20 Polyethylene Glycol 3350 17 Gm Packet PO 11/16/23 07:19 BID PRN PRN Constipation Sodium Chloride 0 ml 10/17/23 06:00 Normal Saline Flush 10 Ml Syr IV 10/17/23 23:59 PRN PRN Sodium Chloride 0 ml 10/17/23 06:00 Normal Saline 10 Ml Vial IJ 10/17/23 23:59 DIRECTED PRN Sterile Water 0 ml 10/17/23 06:00 Water,Injection,Sterile 10 Ml Vial IJ 10/17/23 23:59 DIRECTED PRN PFSH Active Problems Active Problems: Problem Status Onset Code Osteoarthritis of right knee M17.11 SHARYN positive R76.8 Left rib fracture S22.32XA Diverticulosis K57.90 Acute left-sided low back pain M54.5 S/P colonoscopy ~04/08/19 Z98.890 Medical History Medical History Bilateral plantar fasciitis Sciatica Depression Dyspareunia NSAID long-term use Right carpal tunnel syndrome Surgical History Surgical History History of back surgery Fusion History of total left knee replacement (TKR) History of shoulder surgery History of arthroscopic knee surgery pt states bilat knee scopes and r shoulder. History of colonoscopy History of appendectomy Tobacco Smoking/Tobacco Use Status: Former Tobacco Use Alcohol Alcohol Intake: current Alcohol intake frequency: a few times a week Alcohol type: wine and hard liquor Substance Use Substance use: Never Substance use type: does not use Vital Signs and Lab Results Vital Signs Most Recent Vital Signs in EMR: Most Recent Vital Signs Temp Pulse Resp BP Pulse Ox 35.7 C L 70 15 104/65 95 10/17/23 09:02 10/17/23 09:02 10/17/23 10:20 10/17/23 10:20 10/17/23 10:20 Lab Results Blood Type / Crossmatch: No Data to Display Complete Blood Count: White Blood Count 9.84 10^3/uL (4.4-10.8) 10/05/23 11:43 Red Blood Count 3.92 10^6/uL (3.93-5.22) L 10/05/23 11:43 Hemoglobin 13.0 g/dL (11.2-15.7) 10/05/23 11:43 Hematocrit 38.1 % (36.0-46.0) 10/05/23 11:43 Platelet Count 306 10^3/uL (130-400) 10/05/23 11:43 Complete Metabolic Panel: Sodium 142 mmol/L (136-145) 10/05/23 11:43 Potassium 3.9 mmol/L (3.5-5.1) 10/05/23 11:43 Chloride 105 mmol/L (98-107) 10/05/23 11:43 Carbon Dioxide 27.6 mmol/L (21.0-32.0) 10/05/23 11:43 BUN 20 mg/dL (7-18) H 10/05/23 11:43 Creatinine 1.0 mg/dL (0.55-1.02) 10/05/23 11:43 Est GFR (CKD-EPI 2020) 62.91 (mL/min/1.73m2) 10/05/23 11:43 Calcium 9.2 mg/dL (8.5-10.1) 10/05/23 11:43 Glucose 88 mg/dL (74-106) 10/05/23 11:43 Liver Function Panel: No Data to Display Coagulation Panel: No Data to Display Cardiac Panel: No Data to Display Arterial Blood Gas: No Data to Display Venous Blood Gas: No Data to Display Pancreas Panel: No Data to Display Thyroid Panel: No Data to Display Infectious Disease: No Data to Display Blood Cultures: No Data to Display Toxicology Panel: No Data to Display Imaging and Studies Imaging and Studies Study information below may be from another EMR and interpreted by another provider. Please see original notes in EMR for more complete details. Other Study Summary:: L spine MRI reviewed and results in chart Anesthesia Assessment and Plan Anesthesia History Personal History: No History of Anesthesia Complications Family History: No Family History of Anesthesia Complications Exercise Tolerance Exercise Tolerance: Metabolic Equivalents>4 Pertinent Negatives Pertinent Negatives: No Symptoms of GERD, No Major Cardiovascular Symptoms or Complaints, No Major Pulmonary Symptoms or Complaints and No History of CVA/TIA Cardiac & Pulmonary Exam Cardiac Exam: Normal S1/S2 Heart Sounds Pulmonary Exam: Clear Bilateral Breath Sounds Implantable Cardiac Device Does patient have a Pacemaker or an ICD?: No Airway Exam Known Difficult Airway: No Mallampati Class: 1 Mouth Opening: Normal (> 3cm) Thyromental Distance: Greater than 3 cm Neck Range of Motion: Full ROM Neck Circumference: Normal Teeth Condition: Normal Dentition ASA Classification ASA Score: ASA 2 Emergency Case?: No NPO Status NPO Status: NPO Clears >2 hours, Solids >8 hours Anesthesia Plan Resuscitation Status: Full Code Anesthesia Technique: Spinal Anesthesia Airway Planned: Natural Airway Pain Management: Surgeon and patient request nerve block Monitors Used: Standard Monitors
--- NOTE | 2023-10-17 11:08 | W.ANESNERVE ---
Nerve Block Single Injection Procedure Date and Time Date Performed: 10/17/23 Procedure Start: 10:17 Location Where Procedure Performed Procedure Location: Day Surgery Unit Reason Performed: Postoperative Analgesia Requesting Provider: Clayton Callaway Timeout Performed Timeout Performed: Yes Monitoring Used ECG, Blood Pressure, SpO2 and See EMR for corresponding vital signs Sterility Sterility: Hand Hygiene, Surgical Cap, Surgical Mask, Sterile Gloves and Chlorhexidine Sedation Given During Procedure Sedation Given (Indicate Dose Given): Versed IV Dose:: 2mg Patient Mental Status Patient Mental Status: Sedate with meaningful communication Nerve Block 1st Nerve Block: Laterality: Right Block Type: Adductor Canal Ultrasound Image Saved?: Yes Needle / Catheter Used: 100mm SonoPlex II Local Anesthetic Bolus (Indicate Dose Given): Lidocaine used for local infiltration of skin, Injected in 3-5ml increments after negative blood aspiration and Bupivacaine 0.25% Dose:: 15mL Additives (Indicate Dose Given): None Ultrasound: Sterile probe cover and gel used Nerve Stimulator: Supplement to Ultrasound use Paresthesia: None Procedure Tolerated: No Complications and Patient tolerated well Procedure Outcome: Successful Performed By: Pauline Bruno Supervised By: Anuj Asif
--- NOTE | 2023-10-17 12:12 | W.PM.OP ---
Date of service: 10/17/23 Time of Service: 10:30 Operative Note Operative Note DATE OF PROCEDURE: 10/17/23 PRE-OP DIAGNOSIS: Right Knee Osteoarthritis POST-OP DIAGNOSIS: same (Significant hemosiderin stained synovium) PROCEDURE: Right Total Knee Replacement with Intraoperative Navigation SURGEON: Clayton Callaway MANDARIN SPEAKING NANNY: Harsha Segundo ANESTHESIA TYPE: Spinal Refer to Anesthesia Record ESTIMATED BLOOD LOSS: 100 PATHOLOGY: other (Synovium sample) TOURNIQUET TIME: 0 COMPLICATIONS: None Patient was transported to: PACU Patient's condition: stable Implants: 1. Depuy Attune Cementless Cruciate Retaining Femoral Component, Size 6 Narrow 2. Depuy Attune Cementless Fixed Bearing Tibial Component, Size 4 3. Depuy Attune 6x6 CR/FB Poly 4. Depuy Attune Patellar Component, Size 32 Indications: I have seen Taylor in clinic for symptoms of RIGHT knee arthritis, confirmed with radiographic findings. Taylor has exhausted nonoperative methods and was having significant limitations in daily function and desired better function and less pain. I discussed the technical details of a knee replacement. I explained the risks of the procedure to include, but not limited to, bleeding, infection, pain, stiffness, fracture, damage to nerves and vessels, damage to muscles and tendons, loosening, need for repeat procedure, blood clot and cardiopulmonary demise. Despite these risks, she elected to proceed. Findings: There was significant signs of arthritis throughout the knee. Procedure Description: Taylor was greeted in the preoperative holding area where the correct side was identified and marked. The consent was reviewed with the patient and signed. The history and physical was updated. All questions were answered. Preoperative mediacations were administered: Acetaminophen 1000mg, Celebrex 400mg, and Gabapentin 300mg. An adductor canal block was then administered by the anesthesia team in the PACU. Taylor was taken back to the operating room. A spinal anesthestic was then administered. The patient was placed into the supine position on the operating room table. A nonsterile tourniquet was placed high onto the leg. Posts were placed for positioning during the procedure. All bony prominences were well padded. Prophylactic antibiotics in the form of Cefazolin were administered. 1g of Tranxemic Acid was given intravenously within 30 minutes of incision. The right leg was then prepped with Chloraprep and draped in a standard fashion with impervious stockinette. A second prep with Chloraprep was performed prior to application of Iodine impregnated skin protection. A timeout to confirm correct identity, side and site, procedure, allergies, anesthesia, and medical concerns was performed. With the knee in some flexion, a midline incision was made overlying the knee. Full thickness skin flaps were raised once the extensor mechanism was encountered. These were raised medially and laterally. Any bleeding was controlled with electrocautery. Once the extensor mechanism was fully exposed, a medial parapatellar arthrotomy was performed in a flexed position. All bleeding from the arthrotomy and the geniculate arteries was coagulated. A medial subperiosteal peel was performed with electrocautery to the midcoronal plane. The fat pad was removed while keeping the patellar tendon protected. The anterior distal femur synovium was removed for later visualization. The ACL and PCL were resected and the anterior horn of the lateral meniscus was transected. The knee was then flexed with the patella everted. Large osteophytes from the femur were removed. There was notable hemosiderin stained tissue throughout. The cartilage in the synovium had a bronze appearance to it which was unexpected. A sample of synovium was resected and sent to pathology. A single starting pin was then placed 1cm anterior to the PCL insertion and the notch in the direction of the femoral head. The OrthoAlign device was applied over the pin. It was oriented to be in line with the epicondylar axis and the trochlear groove. It was then pinned into place. The navigation computer was then turned on and calibrated. The distal femur cut was set at 0 degrees varus/valgus and 3.5 degrees flexion. The distal femur cutting guide then was positioned for a 9mm cut. The distal femur was cut with an oscillating saw while protecting the soft tissues. The tibia was then addressed. The OrthoAlign device was placed over the tibial tubercle and medial tibia and secured into position. Once again, OrthoAlign was calibrated and then set for a 1.5 degree varus cut and 6 degrees of posterior slope. With this locked into position, the cut thickness stylus was used to assess cut thickness. The medial side, most involved side, was set for a 6mm cut, which corresponded to 8 mm laterally. This was then held in position and pinned into place with 2 additional pins and a cross pin for stability. The medial and lateral collateral ligaments were protected and the cut was performed. With this completed, it was assessed and noted to be of appropriate dimensions. The guide and OrthoAlign was removed. A spacer block was inserted and the knee was brought into extension to ensure enough space was present. . The Orthoalign gap balancing device was then placed in extension. This was used to ensure that the ligaments were properly balanced with up to 2 to 3 mm laxity laterally compared medially. The extension gap was measured as 18mm. The knee was then brought into 90 degrees of flexion and the ligament process development engineer was once again placed. Under the same amount of force the flexion gap was measured. The Attune specific jig was placed and the flexion gap was made to match the extension gap. The femur was then sized as a size 6 narrow. The 4-in-1 cutting guide was the placed. An cher wing was used to confirm appropriate position of the anterior cut to avoid notching. This cutting guide was ensured to be flush on the cut surface and then pinned into place with headed pins. While protecting the soft tissues, quad tendon, and collateral ligaments, the anterior and posterior cuts were performed with a saw. The central two pins were removed and the posterior and anterior chamfers were cut next. The notch-cutting guide was placed. This was pinned to lateralize the femoral component as much as possible while keeping it flush on the cut surface. This was then pinned into position. A saw was used to make the notch cut. A rasp smoothed the cut surfaces. The medial and lateral menisci were removed. A trial femoral component was then inserted, impacted down to the cut surfaces, and the lug holes were drilled. A provisional trial tibial component was placed and the knee was brought through range of motion. There was noted to be excellent extension and flexion. There was no significant instability. The patella was tracking without thumbs. A size 6mm polyethylene component provided the best range of motion and stability with less than 2mm gapping with medial and lateral stress and full extension without significant hyperextension. The tibial cut surface was fully exposed. The tibia was then sized as a 4. The tibia had been previously marked during trialing to correspond to the center of the tibial component to help with rotation. The trial was aligned to this harsha, approximately rotated to the medial 1/3rd of the tibial tubercle. The trial was pinned into place. The tibia was prepared with a reamer and a keel punch and lug holes. The knee was then brought into extension and the patella was measured as 22mm. Using the patellar clamp and cut guide, this was resected to a flat surface with at least 13mm of thickness remaining. The size 32 patella fit the best. This was oriented and then clamped into position. The lugs were drilled. The trial components were removed. The final components were opened on the back table. The periosteal and capsular tissues, especially posteriorly, around the knee were then systematically injected with a periarticular cocktail consisting of 246mg of Ropivacaine, 0.5mg of Epinephrine, 0.08mg of Clonidine, and 30mg of Ketorolac, diluted to 100cc. On the back table, with the implants opened, the cement was mixed. One batch of high viscosity cement was prepared with vacuum assistance. After the cement was ready a small amount was placed on the cut surface of the patella and the patellar button was clamped into position and held. While the cement was hardening, the cementless knee components were placed. Starting with the tibial component, the tibia was subluxed anteriorly and the lug holes of the component were lined up. The tibia was then impacted with an impactor and mallet until the tibial component was in contact with the tibia. Then, the femoral component was inserted. The lug holes were aligned and the component was impacted into position. The final polyethylene component was inserted. The knee was irrigated with Surgiphor Betadine solution. This was allowed to sit in the knee for 3 minutes and then it was thoroughly irrigated out with saline. After the cement had finally cured, approximately 15min, the clamp was removed from the patella and the knee was taken through range of motion. The patella was tracking with a no-thumbs technique. The capsule was then reapproximated with a No. 1 Vicryl at multiple locations. The capsule was finally closed with a No. 2 Stratafix, barbed suture. Deep tissues were then reapproximated with 0 Vicryl and 2-0 Vicryl. The skin was closed with a running 3-0 Monocryl in a subcuticular fashion. The skin repair was then reinforced with Prineo skin glue closure device. A Mepilex silver dressing was applied along with a [id number] HERACLIO wrap. A CryoCuff was applied. Taylor was transferred to the hospital bed without difficulty an suffering no apparent complication. Talyor has a good prognosis. Physical therapy will start today and without restrictions, weight-bearing as tolerated. Aspirin 81mg BID will be used for DVT prophylaxis.
--- NOTE | 2023-10-17 12:42 | W.ANESPOSTOP ---
Postoperative Evaluation Date, Time and Location Date Performed: 10/17/23 Time Performed: 12:43 Patient Location: PACU Vital Signs Most Recent Imported Vital Signs: Most Recent Vital Signs Temp Pulse Resp BP Pulse Ox 36.5 C 70 14 99/53 L 99 10/17/23 12:31 10/17/23 12:31 10/17/23 12:31 10/17/23 12:31 10/17/23 12:31 Pain Score Most Recent Pain Score: Most Recent Pain Score Pain Level 0 10/17/23 12:31 Assessment Mental Status: Awake (Alert & Oriented to Patient Baseline) Airway and Respiratory Function: Patent airway with normal (patient baseline) respiratory exam Cardiovascular Function: Hemodynamically Stable Hydration Status: Adequately Hydrated Nausea & Vomiting: No Nausea or Vomiting Pain: Pain is tolerable per patient Peripheral Nerve Block: Regional nerve block not resolved at time of post operative discharge
[2023-10-17] MEDS: fentaNYL 100 MCG/2 ML VIAL IVP ×2 (12:51→12:56)
[2023-10-17] MEDS: Tranexamic Acid 650 MG TAB 1300 MG PO (13:55)
--- NOTE | 2023-10-17 14:40 | PT.INIE ---
PT Notes Visit Reasons: R TKR Physical Therapy Day Surgery Initial Evaluation Date: 10/17/2023 Referring Doctor: ALEXANDRIA Gomez PT Orders: PT CONSULT: S/P Ortho Surgery Precautions: WBAT on the R LE with AD. Patient Profile/Admitting Diagnosis: Taylor is a 63-year-old female with degenerative joint disease of the right hand and status post right total knee arthroplasty on postoperative day 0. PMHX: All Active Problems (Updated 10/02/23 @ 10:37 by ALEXANDRIA Gomez) Osteoarthritis of right knee (Acute) LPFL tear SHARYN positive (Acute) Left rib fracture (Acute) Diverticulosis (Acute) Acute left-sided low back pain (Acute) S/P colonoscopy (Acute ~04/08/19) Medical History (Updated 10/02/23 @ 10:37 by ALEXANDRIA Gomez) Bilateral plantar fasciitis Sciatica Depression Dyspareunia NSAID long-term use Right carpal tunnel syndrome Surgical History (Updated 10/02/23 @ 10:37 by ALEXANDRIA Gomez) History of total left knee replacement (TKR) History of shoulder surgery History of arthroscopic knee surgery pt states bilat knee scopes and r shoulder.History of colonoscopy History of appendectomy Social History/Home Situation: Lives with in a private home with 8 steps to enter with a rail on one side. Independent with all aspects of ADLs prior to surgery. Equipment Owned/DME: [facility] Subjective: Complained of R foot feeling and moving so awkwardly. Reported 2-3/10 pain in the R knee. Denied headache, chest pain, lightheadedness throughout session. Objective: General Observation: HERACLIO wraps to R LE. Cryocuff to R knee . TEDS to L leg and foot. Mental Status: A nd O x 4 Pain: As above ROM: Right Lower Extremity: Hip flexion WFL. Hip abduction WFL. Knee flexion 0-100 degrees. Ankle dorsiflexion to neutral only. Unable to invert past neutral. Ankle plantarflexion WFL. Left Lower Extremity: Hip flexion WFL. Hip abduction WFL. Knee flexion WFL. Ankle dorsiflexion WFL. Ankle plantarflexion WFL. Strength: Right Lower Extremity: Hip flexors 4/5. Hip abductors 4/5. Knee flexors 3-/5. Knee extensors 4-/5. Ankle dorsiflexors 2-/5. Ankle invertor 3-/5. Ankle plantarflexors 4-/5. Left Lower Extremity: Hip flexors 5/5. Hip abductors 5/5. Knee flexors 5/5. Knee extensors 5/5. Ankle dorsiflexors 5/5. Ankle plantarflexors 5/5. Sensation: Numb and tingly in R distal leg and foot Bed Mobility/Transfers: Minimal cueing provided for use of B hands as needed for support, movement sequence, AD management, and posture to reduce fall risk and minimize pain report Supine to sit standby assist Sit to stand contact-guard assist Stand to sit standby assist Bed to chair contact-guard assist Gait: Facilitated safe and correct performance of level surface ambulation covering a distance of 150 feet with step to gait pattern requiring contact-guard assist and using front wheeled walker. No dorsiflexion on heel strike on the R side with excessive plantarflexion and eversion seen. Patient verbalized weakness and awkwardness in R foot throughout walk. Specific instruction given to avoid too big of a step length on the R to allow for better control of whole R LE as well as to ensure that walker is placed at right distance from patient for optimal stability. Stairs: Guided patient with safe and correct negotiation of 3 x 4 inch steps and 2 x 6 inch steps while holding onto bilateral rails with step to gait pattern with optimal cueing provided to increase flexion on the right knee during each ascent to reduce fall risk. Balance: Static Sitting: Normal Dynamic Sitting: Normal Static Standing: Fair Dynamic Standing: Fair Special Tests: Mobility Limitations Standardized Measure [facility] AM-PAC 6 clicks Basic Mobility Inpatient Short Form: Raw Score: 16 CMS Score: 54% deficit Informed Consent/Education: Patient instructed in purpose of PT consult. Packet containing TKA exercise protocol has been given to patient. Education and training on initial set of exercises that can be done at home have been completed with patient. Trained patient with correct performance of exercises below to maximize motor control, joint flexibility, soft tissue extensibility of the R knee musculature: Access Code: [email or web address] URL: [email or web address] Date: Prepared by: Felipa Le Exercises - Supine Quad Set - 1 x daily - 7 x weekly - 1 sets - 10 reps - 5 hold - Supine Heel Slide - 1 x daily - 7 x weekly - 1 sets - 10 reps - 5 hold - Supine Ankle Pumps - 1 x daily - 7 x weekly - 1 sets - 10 reps - 5 hold - Small Range Straight Leg Raise - 1 x daily - 7 x weekly - 1 sets - 10 reps - 5 hold - Seated March - 1 x daily - 7 x weekly - 1 sets - 10 reps - 5 hold Assessment: Considerable weakness in R ankle dorsiflexion as well as inversion noted on R at time of evalaution alongisde compalaints of numbness and tingling. Orthopedic surgeon and Nurse Deepika made aware. Patient presents with clinical signs and symptoms consistent with current/admitting diagnoses that have resulted to mobility limitations, gait instability, generalized weakness, and impairment of motor control as demonstrated by the following impairment level findings: 1. Decreased strength to R knee and ankle major muscle groups 2. Impaired standing balance 3. Limitation of joint range of motion in R knee and ankle dorsiflexion/inversion Impairments are contributing to the following functional limitations: 1. Inability to safely ambulate without assistive device 2. Increase completion time for mobility ADL performance 3. Increased fall risk Patient is assessed as a [id number] moderate complexity based on the following: History: 63-year-old female with impairment level findings, functional limitations, and past medical history as indicated above Examination: Demonstrable impairment in strength, balance, and mobility level with underlying impairments and functional limitations as documented above Presentation: Evolving Decision Makin moderate complexity Goals: N/A. PT evaluation and 1-2 treatment sessions only for functional mobility training using recommended AD and for HEP instruction. Plan of Care/Treatment Plan: N/A. PT evaluation and 1-2 treatment session only for functional mobility training using recommended AD and for HEP instruction. DISCHARGE RECOMMENDATIONS: Home when medically cleared by orthopedic surgeon. Recommend outpatient PT services in order to optimize functional mobility outcomes and facilitate return to independent community ambulation without an assistive device. TREATMENT CODE/TIME: 12576 x 20 minutes for 1 unit, 52916 x 28 minutes for 2 units (14:40-15:28). Thank you for the opportunity to participate in the care of this patient. Please sign an return this page within 30 days if you agree with the above POC. Thank you! Physician Signature Date [facility] Thank you for the opportunity to participate in the care of this patient. Felipa Le PT, DPT, CLT [facility] [place], [place]
== END 2023-10-17 16:00 | disposition home or self-care (01) ==
LOC: SUR 08:26
PROVIDERS: PCP Family Medicine; Visit Provider Student in an Organized Health Care Education/Training Program
PROC: (CPT 27447; principal; 2023-10-17 11:00)
DX: M17.11 Unilateral primary osteoarthritis, right knee (principal); F32.A Depression, unspecified; M54.30 Sciatica, unspecified side
CPT/HCPCS: 20985; 27447; C1776; 76942; 88305; 97162; 97530; J0665; J0690; J1100; J2001; J2250; J2371; J2401; J2405; J2704; J3010

== ENCOUNTER 2023-11-02 14:26 | Outpatient (CLI) | payer MEDICARE, SELFPAY ==
--- NOTE | 2023-11-02 09:30 | DI.RAD_ITS ---
Exam(s) XR KNEE RT 1V XR STANDING ALIGNMENT EXAM: XR STANDING ALIGNMENT and XR knee RT 1 V CLINICAL HISTORY: 1ST POST OP R TKA. TECHNIQUE: 2D digital imaging was performed. Five images were obtained. COMPARISON: CR XR KNEE RT 1V from 10/02/2023 FINDINGS: BONES: There are postsurgical changes seen in the lower lumbar spine. Mild joint space narrowing is seen at the hips bilaterally. The hips are well maintained. There are now bilateral total knee repl acements. The prior left total knee replacement is stable. The new right total knee replacement is in good position. No suspicious lucencies are seen in or about the orthopedic hardware. There is pe rsistent mild soft tissue swelling around the right knee. The ankles are well maintained.There is no significant leg length discrepancy. SOFT TISSUE: Normal. IMPRESSION: Stable bilateral total knee replacements. DATA REPOSITORY: RADIATION DOSE DELIVERED:
== END 2023-11-02 14:27 | disposition home or self-care (01) ==
LOC: DIORS 14:26
PROVIDERS: PCP Family Medicine; Visit Provider Physician Assistant
DX: Z96.651 Presence of right artificial knee joint (principal); Z47.1 Aftercare following joint replacement surgery
CPT/HCPCS: 73560; 77073

== ENCOUNTER → 2023-12-04 10:48 | Outpatient (BNVA) | payer MEDICARE, SELFPAY | PROVIDERS: PCP Family Medicine; Visit Provider Student in an Organized Health Care Education/Training Program | DX: Z47.1 Aftercare following joint replacement surgery (principal); Z96.651 Presence of right artificial knee joint ==

== ENCOUNTER → 2024-01-01 08:41 | Outpatient (BNVA) | payer MEDICARE, SELFPAY | PROVIDERS: PCP Family Medicine | DX: Z47.1 Aftercare following joint replacement surgery (principal); Z96.651 Presence of right artificial knee joint ==

== ENCOUNTER 2024-08-26 09:34 | Outpatient (CLI) | payer MEDICARE, SELFPAY ==
--- NOTE | 2024-08-26 08:15 | DI.RAD_ITS ---
Exam(s) XR HIP RT COMPLETE AP PELVIS EXAM: XR HIP RT COMPLETE AP PELVIS CLINICAL HISTORY: RIGHT HIP PAIN. TECHNIQUE: 2D digital imaging was performed. Two views COMPARISON: CR RT HIP COMPLETE AP PELVIS from 07/22/2016 FINDINGS: BONES: No acute fracture is present. No bony destructive lesion is seen. There is hardware in the l ower lumbar spine. JOINTS: No dislocation present. Hip joint spaces are maintained. There is minimal acetabular spurr ing. The SI joints and pubic symphysis are unremarkable SOFT TISSUE: Normal. IMPRESSION: Minimal degenerative changes of the hips. DATA REPOSITORY: RADIATION DOSE DELIVERED:
== END 2024-08-26 09:35 | disposition home or self-care (01) ==
LOC: DIORS 09:35
PROVIDERS: PCP Family Medicine; Referring Provider Family Medicine; Visit Provider Physician Assistant
DX: M67.951 Unspecified disorder of synovium and tendon, right thigh
CPT/HCPCS: 99213; 73502

== ENCOUNTER 2024-10-21 12:17 | Outpatient (CLI) | payer MEDICARE, SELFPAY ==
--- NOTE | 2024-10-21 09:06 | DI.RAD_ITS ---
Exam(s) XR KNEE RT 3V AP,LAT,DEMETRIUS EXAM: XR KNEE RT 3V AP,LAT,DEMETRIUS CLINICAL HISTORY: ANNUAL F/U R TKA. TECHNIQUE: 2D digital imaging was performed. Three images were obtained. AP, lateral and merchant's views were obtained. COMPARISON: CR XR KNEE RT 3V AP,LAT,DEMETRIUS from 06/18/2021 CR XR KNEE RT 1V from 11/02/2023 CR XR STANDING ALIGNMENT from 11/02/2023 FINDINGS: BONES: There are stable post operative changes of a right total knee arthroplasty present. No fractu re or dislocation. JOINTS: The orthopedic hardware is in good position. No evidence of hardware loosening. SOFT TISSUE: Normal. IMPRESSION: Stable right total knee arthroplasty. DATA REPOSITORY: RADIATION DOSE DELIVERED:
== END 2024-10-21 12:18 | disposition home or self-care (01) ==
LOC: DIORS 12:17
PROVIDERS: PCP Family Medicine; Visit Provider Student in an Organized Health Care Education/Training Program
DX: Z47.1 Aftercare following joint replacement surgery (principal); M76.31 Iliotibial band syndrome, right leg; Z96.651 Presence of right artificial knee joint
CPT/HCPCS: 73562; 99213

== ENCOUNTER 2024-10-21 19:08 | Outpatient (REF) | payer MEDICARE, SELFPAY ==
[2024-10-21 21:32] LABS: HCT 42.1 % (36.0-46.0); HGB 14.1 g/dL (11.2-15.7); MCH 33.2 pg (27.0-33.0); MCHC 33.5 % (32.0-36.0); MCV 99 fL (80-95); MPV 10.6 fL (8.0-11.0); Platelet Count 276 10^3/uL (130-400); RBC 4.25 10^6/uL (3.93-5.22); RDW 13.8 % (11.7-14.6); RDW-SD 50.5 fL; WBC 8.33 10^3/uL (4.4-10.8)
[2024-10-21 22:06] LABS: Anion Gap 6.2 mmol/L (3-11); BUN 15 mg/dL (7-18); CO2 30.8 mmol/L (21.0-32.0); CREATININE 0.9 mg/dL (0.55-1.02); Calcium 10.2 mg/dL (8.5-10.1); Chloride 106 mmol/L (98-107); Estimated GFR 70.51 (mL/min/1.73m2); Ferritin 63 ng/mL (8-252); Folate 19.3 ng/mL (8.6-20.0); Glucose 91 mg/dL (74-106); Potassium 4.3 mmol/L (3.5-5.1); Sodium 143 mmol/L (136-145); Vitamin B12 241 pg/mL (193-986); Vitamin D 25 Total 30 ng/mL (30-100)
== END 2024-10-21 19:09 | disposition home or self-care (01) ==
LOC: NCHCN 19:08
PROVIDERS: PCP Family Medicine; Visit Provider Family Medicine
DX: R55 Syncope and collapse (principal); R68.2 Dry mouth, unspecified
CPT/HCPCS: 80048; 82306; 85027; 82607; 82728; 82746

== ENCOUNTER 2025-04-10 04:04 | Outpatient (CLI) | payer MEDICARE, SELFPAY ==
--- NOTE | 2025-04-10 | DI.MAMMO_ITS ---
Exam(s) MAMMO SCREENING EXAM: MAMMO SCREENING CLINICAL HISTORY: SCREENING MAMMO Z12.31 TECHNIQUE: Bilateral full field digital CC and MLO mammographic images were obtained with 3D tomosynthesis and utilizing computer aided detection (CAD). COMPARISON: Comparison is made with prior examinations. FINDINGS: Masses/Architectural Distortion: No suspicious masses or areas of architectural distortion are present. Microcalcifications: No suspicious pleomorphic-type are seen. Skin Thickening/Nipple Retraction: None. IMPRESSION: 1. No significant interval change with no specific features of malignancy noted. 2. Unless there is more urgent need, screening mammography is recommended, as per [place] guidelines. BI-RADS Category 1 - Negative Breast Density - Category B - There are scattered areas of fibroglandular density. Breast density Category C or D implies that the patient has dense breast tissue. Dense breast tissue can make it harder to find cancer on a mammogram. Dense breast tissue is also associated with an increased risk of breast cancer. This information about the result of the mammogram report was provided to the patient to raise their awareness. Use this report when you speak with the patient about their risks for breast cancer, which includes their family history. At that time, you may recommend additional screening tests (Ultrasound or MRI) as these tests may add significant information. A negative radiographic report should not delay biopsy if a dominant or clinically suspicious mass is present. Up to ten percent of cancers are not identified on mammography. A negative report may reinforce clinical impression. Adenosis and dense breasts may obscure an underlying neoplasm. False positive reports average 6 to 10%. Patient will receive a letter notifying them of these results.
--- NOTE | 2025-04-10 | DI.DEXA_ITS ---
Exam(s) XR DEXA BONE DENSITY W/WO BRICE EXAM: XR DEXA BONE DENSITY W/WO BRICE CLINICAL HISTORY: ASYMPTOMATIC MENOPAUSAL STATE Z78.0 SCREENING OSTEOPOROSIS TECHNIQUE: COMPARISON: No exams were available for comparison FINDINGS: Lateral Spine Image: Unremarkable. No compression deformities identified. Posterior spinal rods and screws are seen at L4-L5. Left hip: Total T-Score: -2.1 Total Z-Score: -0.8 T- and Z-scores: The findings are consistent with osteopenia. Lumbar Spine: Total T-Score: -2.2 Total Z-Score: -0.4 T- and Z-scores: The findings are consistent with osteopenia. There is osteoporosis in the left forearm with a total T-score of -3.4 and a Z- score of -1.7. IMPRESSION: Osteoporosis in the left forearm.
== END 2025-04-10 04:24 ==
LOC: DI 04:04
PROVIDERS: PCP Family Medicine; Visit Provider Family Medicine
DX: Z13.820 Encounter for screening for osteoporosis (principal); Z78.0 Asymptomatic menopausal state; Z12.31 Encounter for screening mammogram for malignant neoplasm of breast; M85.89 Other specified disorders of bone density and structure, multiple sites
CPT/HCPCS: 77063; 77067; 77080